=== PATIENT | female | born 1980 | race Caucasian/White ===

== ENCOUNTER 2023-09-19 20:08 | Emergency (ER) | payer OTHER ==
[2023-09-19] MEDS ORDERED: Ondansetron PF 4 MG/2 ML Vial ONE (20:37)
[2023-09-19] MEDS ORDERED: Ketorolac Tromethamine 30 MG (1 mL) VIAL ONE (20:37)
[2023-09-19] MEDS ORDERED: Morphine 4 MG/ML VIAL ONE (20:37)
== END 2023-09-19 22:02 | disposition home or self-care (01) ==
LOC: CSHERS 20:08
DX: N83.291 Other ovarian cyst, right side (principal); F17.290 Nicotine dependence, other tobacco product, uncomplicated
CPT/HCPCS: 76856; 96374; 96375; J1885; J2270; J2405